=== PATIENT | female | born 1985 | race Caucasian/White ===

== ENCOUNTER 2020-04-22 11:09 | Emergency (ER) | payer OTHER ==
[~2020-04-22] VITALS: Ht 157.5 cm; Wt 43.1 kg
[2020-04-22] MEDS ORDERED: MOBIC7.5 MG PO (11:21)
[2020-04-22] MEDS ORDERED: NEURONTIN300 MG PO (11:22)
[2020-04-22] MEDS ORDERED: CYMBALTA60 MG PO (11:22)
[2020-04-22] MEDS ORDERED: ABILIFY15 MG PO (11:22)
[2020-04-22] MEDS ORDERED: ENSKYCE1 EACH PO (11:23)
[2020-04-22] MEDS ORDERED: NAPROSYN500 MG PO (15:38)
[2020-04-22] MEDS ORDERED: NORCO 5-325 TA1 EAC2 PO (15:38)
[2020-04-22 15:44] VITALS: BP 122/85
== END 2020-04-22 15:45 | disposition home or self-care (01) ==
LOC: M.ERS 11:09
DX: M94.0 Chondrocostal junction syndrome [Tietze] (principal); M79.7 Fibromyalgia; Z88.8 Allergy status to other drugs, medicaments and biological substances